=== PATIENT | male | born 1960 | race Caucasian/White ===

== ENCOUNTER 2023-02-14 13:43 | Emergency (ER) | payer OTHER, SELFPAY ==
--- NOTE | 2023-02-14 13:45 | ED.EXTPRO ---
HPI - Extremity Problem General Chief complaint: Skin/Abscess/Foreign Body Stated complaint: Right Arm Irritation Time Seen by Provider: 02/14/23 13:45 Source: patient Mode of arrival: ambulatory Limitations: no limitations History of Present Illness HPI Narrative: Lia is a 63-year-old male patient presenting to the clinic today with complaints right arm pain that started on Thursday. He reports he has a burning tingling sensation and the right upper arm that is radiating it down into his right forearm. Developed a rash to his arm 1-2 days after the pain started. Related Data Home Medications Medication Instructions Recorded Confirmed alprazolam 0.5 mg tablet mg 02/14/23 apixaban 5 mg tablet (Eliquis) mg 02/14/23 atorvastatin 10 mg tablet mg 02/14/23 budesonide-formoterol HFA 80 inhalation 02/14/23 mcg-4.5 mcg/actuation aerosol inhaler (Symbicort) buspirone 5 mg tablet mg 02/14/23 carbidopa 25 mg-levodopa 100 mg tablet 02/14/23 tablet escitalopram oxalate 20 mg tablet mg 02/14/23 fluticasone furoate 100 inhalation 02/14/23 mcg-vilanterol 25 mcg/dose inhalation powder (Breo Ellipta) folic acid 1 mg tablet 02/14/23 hydroxyzine HCl 25 mg tablet mg 02/14/23 lisinopril 2.5 mg tablet mg 02/14/23 metformin 500 mg tablet mg 02/14/23 omeprazole 40 mg capsule,delayed mg 02/14/23 release trazodone 100 mg tablet mg 02/14/23 Allergies Allergy/AdvReac Type Severity Reaction Status Date / Time cephalexin Allergy Unknown Verified 03/27/15 11:22 Review of Systems Review of Systems: Pertinent positives per HPI. Patient denies any fever, chills, headache, visual changes, dizziness, cough, runny nose, sore throat, shortness of breath, chest pain, palpitations, nausea, vomiting, diarrhea, constipation, abdominal pain, or any urinary issues. [facility] Family History Family History Other Diabetes mellitus Family history of cardiovascular disease Social History Social History Smoking status: Never smoker Alcohol intake: never Comments At the time of my signature, I reviewed and agree with the nursing past medical, surgical, social, and family history. There is no relevant family history pertinent to the patient complaint. Exam Narrative: General: Well-developed, well nourished, in no apparent distress Head: Normocephalic, atraumatic. Cardio: Regular rate and rhythm, s1 and s2 normal, no murmur appreciated. Resp: Clear to auscultation bilaterally, no rhonchi, rales, wheezing or rubs. Musculoskeletal: No deformity, non-tender to palpation, grossly normal range of motion, muscle strength strong and equal, peripheral pulse strong, no edema, no cyanosis, normal gait and station, erythematous base rash without vesicular lesions at this time to the right dorsal forearm right posterior elbow and the right eye volar distal upper arm-rash is painful to touch and mildly itchy. Course Course Emergency Course: Portions of this record may have been created with voice recognition software. Level of Care: Express Care Visit Vital Signs Vital signs: Vital signs reviewed MDM - Extremity (Nontraumatic) MDM Narrative Medical decision making narrative: At the time of visit patient is resting comfortably on the exam table. Patient appears to be nontoxic. I suspect patient may have shingles. Prescription for acyclovir and lidocaine cream was sent to the pharmacy. Supportive measures were discussed with the patient and they voiced understanding discharge instructions and agrees to treatment plan. Return precautions reviewed Differential Diagnosis Differential diagnosis: Likely herpes zoster, cellulitis and other (Contact dermatitis, folliculitis) Discharge Plan Discharge Clinical Impression: Herpes zoster Qualifiers: Herpes zoster complications: without complications Qu
[2023-02-14 13:52] VITALS: BP 141/73; PULSE 91; RESP 16; TEMP 35.9; O2SAT 96
== END 2023-02-14 14:14 | disposition home or self-care (01) ==
PROVIDERS: Emergency Provider Nurse Practitioner Family; PCP Family Medicine
DX: B02.9 Zoster without complications (principal); G20.A1 Parkinson's disease without dyskinesia, without mention of fluctuations; E78.00 Pure hypercholesterolemia, unspecified; I10 Essential (primary) hypertension; K21.9 Gastro-esophageal reflux disease without esophagitis; E11.9 Type 2 diabetes mellitus without complications; Z86.718 Personal history of other venous thrombosis and embolism
CPT/HCPCS: 99213; G0463